=== PATIENT | female | born 1995 | race African-American/Black ===

== ENCOUNTER 2020-04-10 01:33 | Emergency (ER) | payer MEDICAID ==
[~2020-04-10] VITALS: Ht 157.5 cm; Wt 53.0 kg
[2020-04-10] MEDS ORDERED: LIDOCAINE HCL/EPINEPHRINE 1%-EPI 1:100,000 20 ML VIAL INFIL ONE (01:45)
[2020-04-10] MEDS ORDERED: LIDOCAINE HCL/EPINEPHRINE 1%-EPI 1:100,000 10 ML VIAL IJ NR (02:00)
[2020-04-10] MEDS ORDERED: IBUP-2029 MT (02:59)
[2020-04-10] MEDS ORDERED: TETANUS, DIPHTHERIA, PERTUSSIS VAC/PF 0.5ML (>7YR OLD) IM ONE (03:00)
[2020-04-10 03:10] VITALS: BP 110/80
== END 2020-04-10 03:11 | disposition home or self-care (01) ==
LOC: ER 01:33
DX: S81.812A Laceration without foreign body, left lower leg, initial encounter (principal); W18.30XA Fall on same level, unspecified, initial encounter; Y93.89 Activity, other specified; Y92.89 Other specified places as the place of occurrence of the external cause; Y99.8 Other external cause status
CPT/HCPCS: 12005; 73590; 81025; 90471; 90715; 99283; A4217; J3490; Z7610

== ENCOUNTER 2020-04-20 11:49 | Emergency (ER) | payer MEDICAID ==
[~2020-04-20] VITALS: Ht 157.5 cm; Wt 59.3 kg
[~2020-04-20 11:49] MED LIST: IBUP-2029 MT
[2020-04-20 11:51] VITALS: BP 111/79
== END 2020-04-20 12:20 | disposition home or self-care (01) ==
LOC: ER 11:49
DX: Z48.02 Encounter for removal of sutures (principal)
CPT/HCPCS: 99282; Z7610

== ENCOUNTER 2022-10-26 23:21 | Emergency (ER) | payer MEDICAID ==
[2022-10-26 23:49] VITALS: PULSE 90
[2022-10-27] MEDS ORDERED: PREN-28 MT (22:14)
== END 2022-10-27 00:27 | disposition left against medical advice (07) ==
LOC: ER 23:21
DX: Z53.21 Procedure and treatment not carried out due to patient leaving prior to being seen by health care provider (principal)

== ENCOUNTER 2022-10-27 21:15 | Emergency (ER) | payer MEDICAID ==
[~2022-10-27] VITALS: Ht 160 cm; Wt 73.0 kg
[2022-10-27 21:42] VITALS: BP 116/74; PULSE 85; RESP 17; TEMP 97.8; O2SAT 98
[2022-10-27] MEDS ORDERED: PREN-28 MT (22:14)
== END 2022-10-27 23:30 | disposition home or self-care (01) ==
LOC: ER 22:37
DX: Z32.01 Encounter for pregnancy test, result positive (principal)
CPT/HCPCS: 81025; 99282

== ENCOUNTER 2022-11-17 17:02 | Emergency (ER) | payer MEDICAID ==
[~2022-11-17] VITALS: Ht 154.9 cm; Wt 70.3 kg
[~2022-11-17 17:02] MED LIST changes: +PREN-28 MT
[2022-11-17 17:10] VITALS: O2SAT 99
[2022-11-17 17:56] LABS: BASOPHILS % 0.3 % (0.0-2.0); EOSINOPHILS % 0.4 % (0.0-5.0); HEMATOCRIT. 42.1 % (36.0-48.0); HEMOGLOBIN. 13.9 g/dL (12.0-16.0); LYMPHOCYTES % 12.6 % (20.0-50.0); MEAN CORPUSCULAR HEMOGLOBIN 28.9 pg (28.0-32.0); MEAN CORPUSCULAR HGB CONC 32.9 g/dL (31.0-37.0); MEAN CORPUSCULAR VOLUME 87.6 fL (81.0-99.0); MONOCYTES % 10.1 % (2.0-8.0); NEUTROPHILS % 76.6 % (40.0-76.0); PLATELET 448 x1000/uL (130-400); RED CELL DISTRIBUTION WIDTH 13.1 % (11.6-14.6)
[2022-11-17 18:11] LABS: CHLORIDE 100 mEq/L (98-107); INDEX HEMOLYSI 1 (1-3); INDEX ICTERIC 1 (1-4); INDEX LIPEMIC 1 (1-3); POTASSIUM 3.4 mEq/L (3.5-5.1); SODIUM 135 mEq/L (136-145)
[2022-11-17 18:13] LABS: HCG SCREEN POSITIVE
[2022-11-17 18:25] LABS: ALANINE AMINOTRANSFERASE 54 IU/L (13-61); ALBUMIN 3.8 g/dL (3.4-5.0); ASPARTATE AMINOTRANSFERASE 22 IU/L (15-37); BILIRUBIN TOTAL 0.7 mg/dL (0.1-1.0); CALCIUM 9.4 mg/dL (8.5-10.1); CARBON DIOXIDE 24 mEq/L (21-32); CREATININE 0.7 mg/dL (0.6-1.3); GLUCOSE 91 mg/dL (70-105); PROTEIN TOTAL 8.2 g/dL (6.0-8.3); UREA NITROGEN BLOOD 8 mg/dL (7-21)
[2022-11-17 18:49] LABS: CLARITY URINE TURBID (CLEAR); COLOR URINE DARK YELLOW (YELLOW); GLUCOSE URINE NEGATIVE (NEGATIVE); KETONES URINE 4+ (NEGATIVE); LEUKOCYTE ESTERASE URINE NEGATIVE (NEGATIVE); NITRITE URINE NEGATIVE (NEGATIVE); OCCULT BLOOD URINE NEGATIVE (NEGATIVE); PROTEIN URINE 1+ (NEGATIVE); SPECIFIC GRAVITY URINE 1.027 (1.005-1.030)
[2022-11-17 18:52] LABS: BACTERIA URINE TNTC; RBC URINE 0-2 /hpf (0-2); YEAST URINE NONE SEEN
[2022-11-17 19:08] LABS: SQUAMOUS EPITHELIAL CELL URINE 3+ /lpf (RARE/1+)
[2022-11-17] MEDS ORDERED: METOCLOPRAMIDE HCL 10MG TABLET PO ONE (21:00)
[2022-11-17] MEDS ORDERED: PYRIDOXINE HCL 50MG TABLET PO ONE (21:30)
[2022-11-17] MEDS ORDERED: DIPHENHYDRAMINE 50MG/ML VIAL IV ONE (21:45)
[2022-11-17] MEDS ORDERED: DEXT 5%/0.45% NACL 500ML 500 ML IV ONE (21:45)
[2022-11-17] MEDS ORDERED: DOXY1TAB3 MT (23:24)
[2022-11-17 23:33] VITALS: BP 111/73; PULSE 88; RESP 16; TEMP 98.2
== END 2022-11-17 23:34 | disposition home or self-care (01) ==
LOC: ER 18:11
DX: O21.9 Vomiting of pregnancy, unspecified (principal); Z3A.09 9 weeks gestation of pregnancy
CPT/HCPCS: 80053; 81003; 84703; 83690; 85025; 36415; 96361; 96374; 99283; J8597; J1200; Z7610